=== PATIENT | female | born 1975 | race Caucasian/White ===

== ENCOUNTER 2017-05-26 11:52 | Emergency (ER) | payer OTHER ==
[2017-05-26 12:04] VITALS: BP 161/102; PULSE 82; RESP 16; TEMP 98.4; O2SAT 99
--- NOTE | 2017-05-26 12:05 | PD ---
Physical Exam Time Seen by Provider: 12:03 Narrative 41yo F c/o lightheaded, nauseas this morning. Feels like shes going to pass out if she looks down. +dizziness, occasional pressure behind eyes. Denies chest pain, SOB, heart palpitations. Patient seen in triage. VS reviewed. Patient awaiting bed placement. MDM Supervised Visit with YOLETTE: Val Turcios May 26, 2017 12:05
[2017-05-26 12:50] LABS: AUTOMATED NEUTROPHIL # 6.8 TH/MM3 (1.8-7.7); BASOPHIL % 0.5 % (0.0-2.0); EOSINOPHIL # 0.1 TH/MM3 (0-0.4); EOSINOPHIL % 1.5 % (0.0-4.0); HEMATOCRIT 37.8 % (35.0-46.0); HEMO FLAGS DIFF FINAL; LYMPH % 21.8 % (9.0-44.0); LYMPHOCYTE # 2.1 TH/MM3 (1.0-4.8); MEAN CELL VOLUME 83.4 FL (80.0-100.0); MEAN CORPUSCULAR HEMOGLOBIN 28.5 PG (27.0-34.0); MEAN CORPUSCULAR HGB CONC 34.2 % (32.0-36.0); MONO % 4.8 % (0.0-8.0); NEUT % 71.4 % (16.0-70.0); PLATELET COUNT 241 TH/MM3 (150-450); RED BLOOD COUNT 4.53 MIL/MM3 (4.00-5.30); RED CELL DISTRIBUTION WIDTH 13.5 % (11.6-17.2); WHITE BLOOD COUNT 9.5 TH/MM3 (4.0-11.0)
[2017-05-26 12:59] LABS: BACTERIA, URINE RARE /hpf; BLOOD, URINE MOD (NEG); COMMENT (UR) CULT NOT INDICATED; CULTURE IF INDICATED CULT NOT INDICATED; GLUCOSE,URINE NEG (NEG); KETONE, URINE NEG (NEG); MUCUS URINE FEW /lpf (OCC); NITRITE,URINE NEG (NEG); SQUAMOUS EPITHELIAL CELL URINE <1 /hpf (0-5); URINE COLOR YELLOW (YELLW/STRAW)
[2017-05-26 13:14] LABS: BICARBONATE 22.7 MEQ/L (21.0-32.0); POTASSIUM 3.8 MEQ/L (3.5-5.1)
[2017-05-26] MEDS ORDERED: MACR100C2 PO (14:03)
--- NOTE | 2017-05-26 14:03 | PD ---
HPI Chief Complaint: Dizziness Time Seen by Provider: 13:52 Travel History International Travel<30 days: No Contact w/Intl Traveler<30days: No Traveled to known affect area: No History of Present Illness HPI 41-year-old female came to the emergency room with history of sudden onset dizziness while she was at work. Patient says that she feels like the room was spinning after which she felt very lightheaded and that she was going to pass out. This happened at 10:30 this morning. She says that feeling has slowly subsided but she still feels a fullness in her head. Soon after the initial feeling she was getting some sharp twinges behind her right eye which has gone away as well. Her vital signs are stable. Currently she does not appear to be in any distress. Patient says that she has never felt like this in the past. She was nauseous but no history of vomiting. No history of fever or chills. PFSH Past Medical History Narrative Medical List of her past medical, surgical, social and family history is reviewed from the nursing note. LMP: 05/23/17 Family History Narrative Family History Patient's brother was diagnosed with hypertrophic obstructive cardiomyopathy when he was in his late 20s and early 30s from sudden cardiac . Social History Tobacco Use: No Allergies-Medications (Allergen,Severity, Reaction): Coded Allergies: clindamycin (Verified Adverse Reaction, Unknown, DIZZINESS, 05/26/17) Comments List of her allergies reviewed from the nursing note. Reported Meds & Prescriptions Reported Meds & Active Scripts Active Meclizine (Meclizine HCl) 25 Mg Tab 25 Mg PO TID PRN Narrative Medication List of her home medications reviewed from the nursing note. Review of Systems Except as stated in HPI: all other systems reviewed are Neg Physical Exam Narrative GENERAL: Awake, alert, no obvious distress SKIN: Focused skin assessment warm/dry. HEAD: Atraumatic. Normocephalic. EYES: Pupils equal and round. No scleral icterus. No injection or drainage. No nystagmus ENT: No nasal bleeding or discharge. Mucous membranes pink and moist. NECK: Trachea midline. No JVD. CARDIOVASCULAR: Regular rate and rhythm. No murmur appreciated. RESPIRATORY: No accessory muscle use. Clear to auscultation. Breath sounds equal bilaterally. GASTROINTESTINAL: Abdomen soft, non-tender, nondistended. Hepatic and splenic margins not palpable. MUSCULOSKELETAL: No obvious deformities. No clubbing. No cyanosis. No edema. NEUROLOGICAL: Awake and alert. No obvious cranial nerve deficits. Motor grossly within normal limits. Normal speech. Finger-nose coordination and heel lopez test were within normal limits. PSYCHIATRIC: Appropriate mood and affect; insight and judgment normal. Data Data Last Documented VS Vital Signs Date Time Temp Pulse Resp B/P (MAP) Pulse Ox O2 Delivery O2 Flow Rate FiO2 05/26/17 16:36 05/26/17 15:15 75 18 99 Room Air 05/26/17 12:04 98.4 Orders Orders Electrocardiogram (05/26/17 12:05) Basic Metabolic Panel (Bmp) (05/26/17 12:05) Complete Blood Count With Diff (05/26/17 12:05) Urinalysis - C+S If Indicated (05/26/17 12:27) Ed Urine Pregnancytest Poc (05/26/17 14:51) Ct Brain W/O Iv Contrast(Rout) (05/26/17 ) Orthostatic Vital Signs (05/26/17 14:51) Sodium Chlor 0.9% 1000 Ml Inj (Ns 1000 M (05/26/17 15:00) Meclizine (Antivert) (05/26/17 15:00) Labs Laboratory Tests Test 05/26/17 12:25 White Blood Count 9.5 TH/MM3 Red Blood Count 4.53 MIL/MM3 Hemoglobin 12.9 GM/DL Hematocrit 37.8 % Mean Corpuscular Volume 83.4 FL Mean Corpuscular Hemoglobin 28.5 PG Mean Corpuscular Hemoglobin Concent 34.2 % Red Cell Distribution Width 13.5 % Platelet Count 241 TH/MM3 Mean Platelet Volume 8.3 FL Neutrophils (%) (Auto) 71.4 % Lymphocytes (%) (Auto) 21.8 % Monocytes (%) (Auto) 4.8 % Eosinophils (%) (Auto) 1.5 % Basophils (%) (Auto) 0.5 % Neutrophils # (Auto) 6.8 TH/MM3 Lymphocytes # (Auto) 2.1 TH/MM3 Monocytes # (Auto) 0.5 TH/MM3 Eosinophils # (Auto) 0.1 TH/MM3 Basophils # (Auto) 0.0 TH/MM3 CBC Comment DIFF FINAL Differential Comment Urine Color YELLOW Urine Turbidity CLEAR Urine pH 5.0 Urine Specific [place] 1.023 Urine Protein NEG mg/dL Urine Glucose (UA) NEG mg/dL Urine Ketones NEG mg/dL Urine Occult Blood MOD Urine Nitrite NEG Urine Bilirubin NEG Urine Urobilinogen LESS THAN 2.0 MG/DL Urine Leukocyte Esterase NEG Urine RBC 7 /hpf Urine WBC LESS THAN 1 /hpf Urine Squamous Epithelial Cells <1 /hpf Urine Bacteria RARE /hpf Urine Mucus FEW /lpf Microscopic Urinalysis Comment CULT NOT INDICATED Blood Urea Nitrogen 15 MG/DL Creatinine 0.93 MG/DL Random Glucose 118 MG/DL Calcium Level 8.9 MG/DL Sodium Level 138 MEQ/L Potassium Level 3.8 MEQ/L Chloride Level 104 MEQ/L Carbon Dioxide Level 22.7 MEQ/L Anion Gap 11 MEQ/L Estimat Glomerular Filtration Rate 67 ML/MIN [facility] Medical Decision Making Medical Screen Exam Complete: Yes Emergency Medical Condition: Yes Medical Record Reviewed: Yes Interpretation(s) Twelve-lead EKG was reviewed by me. Normal sinus rhythm, normal axis, J-point elevation. Heart rate of 74 bpm. Differential Diagnosis BPV, TIA, intracranial bleed, arrhythmia Narrative Course 3:52 PM blood test results of back and within normal limit. Awaiting for urine and CT scan of her head to be done and resulted. Patient was not orthostatic. She was given 1 L fluid bolus however. I also gave her dose of meclizine. I'll reassess her in a bit. 4:[address] scan of her head was read as negative. Patient was reassessed. She is comfortable going home. Procedures EKG Prior to Arrival: Yes Diagnosis Primary Impression: BPV (benign positional vertigo) Qualified Codes: H81.10 - Benign paroxysmal vertigo, unspecified ear Referrals: Primary Care Physician 3 days Departure Forms: School Release, Return to School Date: May 28, 2017 Tests/Procedures Additional Instructions: Please return to the ER if the condition worsens or any other new concerns. He should not be driving until you are free of symptoms and cleared by your primary care. Follow-up with your primary care in next couple days. Take the medication as per the prescription direction. Med/Other Pt SpecificInfo: Prescription(s) given Scripts Meclizine (Meclizine) 25 Mg Tab 25 MG PO TID Y for VERTIGO, #21 TAB 0 Refills Prov: Jairo Israel MD 05/26/17 Disposition: 01 DISCHARGE HOME Condition: Stable Jairo Israel MD May 26, 2017 14:03
[2017-05-26] MEDS ORDERED: MECLIZINE HCL 25 MG TAB PO ONE (15:00)
[2017-05-26] MEDS ORDERED: SODIUM CHLOR 0.9% 1000 ML INJ 1,000 ML IV ONE (15:00)
[2017-05-26 15:04] VITALS: BP_SYST 122; BP_SYST 136; BP_SYST 140; BP_DIAS 77; BP_DIAS 84; BP_DIAS 90; RESP 18
[2017-05-26 15:15] VITALS: BP 122/75; PULSE 75; RESP 18; O2SAT 99
--- NOTE | 2017-05-26 16:09 | RADRPT ---
EXAM DATE/TIME: 05/26/2017 15:56 [facility] COMPARISON: No previous studies available for comparison. INDICATIONS : Dizziness. RADIATION DOSE: 39.52 CTDIvol (mGy) MEDICAL HISTORY : None SURGICAL HISTORY : Cholecystectomy. ENCOUNTER: Initial ACUITY: 1 day PAIN SCALE: 1/10 LOCATION: Right cranial TECHNIQUE: Multiple contiguous axial images were obtained of the head. Using automated exposure control and adj ustment of the mA and/or kV according to patient size, radiation dose was kept as low as reasonably a chievable to obtain optimal diagnostic quality images. DICOM format image data is available electro nically for review and comparison. FINDINGS: CEREBRUM: The ventricles are normal for age. No evidence of midline shift, mass lesion, hemorrhage or acute in farction. No extra-axial fluid collections are seen. POSTERIOR FOSSA: The cerebellum and brainstem are intact. The 4th ventricle is midline. The cerebellopontine angle i s unremarkable. EXTRACRANIAL: The visualized portion of the orbits is intact. SKULL: The calvaria is intact. No evidence of skull fracture. CONCLUSION: Normal examination. Sridhar Elkins MD on May 26, 2017 at 16:07 Board Certified Radiologist. This report was verified electronically.
[2017-05-26] MEDS ORDERED: MECL-62 PO (16:25)
--- NOTE | 2017-05-27 16:42 | EKG ---
Date Performed: 05/26/2017 Time Performed: 12:21:42 PTAGE: 41 years EKG: Sinus rhythm LOW QRS VOLTAGE IN PRECORDIAL LEADS BORDERLINE ECG NO PREVIOUS TRACING DOCTOR: Marlene Sim Interpretating Date/Time 05/27/2017 16:39:11
== END 2017-05-26 16:43 | disposition home or self-care (01) ==
LOC: NEPD 11:52
DX: H81.10 Benign paroxysmal vertigo, unspecified ear (principal); R11.0 Nausea
CPT/HCPCS: 70450; 80048; 81001; 84703; 85025; 93005; 99284; J7030